=== PATIENT | female | born 2000 ===

== ENCOUNTER 2025-05-13 08:24 | Outpatient (CLI) | payer MEDICAID ==
[2025-05-13] VITALS (22 sets, daily range): BP systolic 91–128; BP diastolic 48–81; PULSE 60–96
== END 2025-05-13 23:59 | disposition home or self-care (01) ==
LOC: CARD DIAG 08:24
PROVIDERS: ATTEND Physician Assistant
DX: R42 Dizziness and giddiness (principal); R55 Syncope and collapse
CPT/HCPCS: 93660